=== PATIENT | male | born 1985 | race African-American/Black ===

== ENCOUNTER 2018-07-29 19:00 | Emergency (ER) | payer BC, SELFPAY ==
[2018-07-29 19:31] LABS: #Basophils 0.1 thou/uL (0.0-0.2); #Monocytes 0.6 thou/uL (0.11-0.59); #Neutrophils 2.8 thou/uL (1.40-6.50); %Basophils 1.3 % (0.0-1.0); %Eosinophils 0.4 % (0.0-10.0); %Lymphocytes 23.1 % (21.0-51.0); %Monocytes 12.6 % (0.0-10.0); %Neutrophils 62.6 % (42.0-75.0); Hemoglobin 12.6 g/dL (14.0-18.0); Mean Corpuscular HGB CONC 32.9 g/dL (32.0-36.0); Mean Corpuscular Hemoglobin 27.8 pg (27.0-31.0); Mean Corpuscular Volume 84.4 fL (78.0-98.0); Mean Platelet Volume 8.7 fL (7.4-10.4); Platelet Count 165 thou/uL (130-400); RBC Distribution Width 11.5 % (11.5-14.5); Red Blood Cell (RBC) Count 4.53 mill/uL (4.70-6.10); White Blood Cell (WBC) Count 4.4 thou/uL (4.8-10.8)
[2018-07-29 20:05] LABS: ALT (SGPT) 24 U/L (8-55); AST (SGOT) 19 U/L (5-34); Albumin 4.2 g/dL (3.5-5.0); Alkaline Phosphatase 52 U/L (40-150); Anion Gap 11 mmol/L (10-20); BUN (Urea Nitrogen) 11 mg/dL (8.9-20.6); Bilirubin, Total 0.4 mg/dL (0.2-1.2); Calc. Creatinine Clearance 0 mL/min (70-130); Calcium 9.5 mg/dL (7.8-10.44); Carbon Dioxide 28 mmol/L (22-29); Chloride 103 mmol/L (98-107); Estimated GFR-MDRD 59; Glucose 114 mg/dL (70-105); Protein, Total 7.2 g/dL (6.0-8.3); Sodium 138 mmol/L (136-145)
[2018-07-29] MEDS ORDERED: Metoclopramide HCl 10 MG/2 ML VIAL ONE (20:17)
[2018-07-29] MEDS ORDERED: diphenhydrAMINE 50 MG/ML VIAL ONE (20:17)
[2018-07-29] MEDS ORDERED: Acetaminophen 500 MG TAB ONE (20:17)
--- NOTE | 2018-07-29 20:23 | CT ---
CT HEAD WITHOUT CONTRAST: 07/29/18 Multiple axial tomograms obtained through the head without IV enhancement. INDICATIONS: Headache. Ventricles have normal size and position. No evidence of intracranial mass or hemorrhage. No evidence of edema or infarct. Sinuses are well aerated. IMPRESSION: No acute findings. POS: [facility]
== END 2018-07-29 22:47 | disposition home or self-care (01) ==
LOC: ERS 19:00
DX: R51 Headache (principal)
CPT/HCPCS: 36415; 70450; 80053; 85025; 96365; 96366; 96375; J1200; J2765

== ENCOUNTER 2021-04-15 10:35 | Inpatient (IN) | payer OTHER ==
[2021-04-15 11:26] LABS: #Basophils 0.1 thou/uL (0.0-0.2); #Lymphocytes 1.4 thou/uL (1.20-3.40); #Monocytes 1.1 thou/uL (0.11-0.59); #Neutrophils 7.8 thou/uL (1.40-6.50); %Basophils 0.5 % (0.0-1.0); %Eosinophils 0.3 % (0.0-10.0); %Lymphocytes 13.8 % (21.0-51.0); %Monocytes 10.1 % (0.0-10.0); %Neutrophils 75.3 % (42.0-75.0); Hemoglobin 13.3 g/dL (14.0-18.0); Mean Corpuscular HGB CONC 31.5 g/dL (32.0-36.0); Mean Corpuscular Hemoglobin 27.4 pg (27.0-31.0); Mean Corpuscular Volume 86.7 fL (78.0-98.0); Mean Platelet Volume 8.9 fL (7.4-10.4); Platelet Count 166 thou/uL (130-400); RBC Distribution Width 11.8 % (11.5-14.5); Red Blood Cell (RBC) Count 4.88 mill/uL (4.70-6.10); White Blood Cell (WBC) Count 10.4 thou/uL (4.8-10.8)
[2021-04-15 11:48] LABS: ALT (SGPT) 17 U/L (8-55); AST (SGOT) 18 U/L (5-34); Albumin 4.5 g/dL (3.5-5.0); Alkaline Phosphatase 56 U/L (40-110); Anion Gap 15 mmol/L (10-20); BUN (Urea Nitrogen) 11 mg/dL (8.9-20.6); Bilirubin, Total 0.7 mg/dL (0.2-1.2); Calc. Creatinine Clearance 0 mL/min (70-130); Calcium 9.9 mg/dL (7.8-10.44); Carbon Dioxide 25 mmol/L (22-29); Chloride 105 mmol/L (98-107); Globulin 3.3 g/dL (2.4-3.5); Glucose 92 mg/dL (70-105); Potassium 3.7 mmol/L (3.5-5.1); Protein, Total 7.8 g/dL (6.0-8.3); Sodium 141 mmol/L (136-145)
[2021-04-15] MEDS ORDERED: Ketorolac Tromethamine 30 MG/ML VIAL ONE (13:18)
[2021-04-15] MEDS ORDERED: cefTRIAXone\\ROCEPHIN 2 GM VIAL ONE (13:18)
[2021-04-15] MEDS ORDERED: Ondansetron PF 4 MG/2 ML Vial IVP PRN (17:13)
[2021-04-15] MEDS ORDERED: Ondansetron ODT 4 MG TAB PO PRN (17:13)
[2021-04-15] MEDS ORDERED: Acetaminophen 650 MG Suppository PR PRN (17:13)
[2021-04-15] MEDS: Vancomycin 1.5 GRAM/300 ML BAG 1.5 GM in Premix Bag 1 BAG IVPB SCH ×3 (19:57→23:08)
[2021-04-15] MEDS: Acetaminophen 325 MG TAB PO PRN (21:21)
[2021-04-15] MEDS: Ketorolac Tromethamine 10 MG TAB PO PRN (21:43)
[2021-04-15] MEDS: Cefepime 2 GM in Sodium Chloride 0.9% 100 ML IVPB SCH (21:47)
[2021-04-15] MEDS: Clindamycin/D5W 600 MG in Premix Bag 1 BAG IVPB SCH (22:14)
[2021-04-15 23:53] VITALS: BMI 25.1
[2021-04-16] MEDS: Clindamycin/D5W 600 MG in Premix Bag 1 BAG IVPB SCH ×2 (05:59→16:44)
[2021-04-16 06:22] LABS: #Eosinphils 0.1 thou/uL (0.0-0.7); #Lymphocytes 1.4 thou/uL (1.20-3.40); #Monocytes 0.7 thou/uL (0.11-0.59); #Neutrophils 4.7 thou/uL (1.40-6.50); %Basophils 0.1 % (0.0-1.0); %Eosinophils 1.4 % (0.0-10.0); %Lymphocytes 19.9 % (21.0-51.0); %Monocytes 10.1 % (0.0-10.0); %Neutrophils 68.6 % (42.0-75.0); Hemoglobin 12.1 g/dL (14.0-18.0); Mean Corpuscular HGB CONC 31.8 g/dL (32.0-36.0); Mean Corpuscular Hemoglobin 27.8 pg (27.0-31.0); Mean Corpuscular Volume 87.5 fL (78.0-98.0); Mean Platelet Volume 8.7 fL (7.4-10.4); Platelet Count 157 thou/uL (130-400); RBC Distribution Width 11.7 % (11.5-14.5); Red Blood Cell (RBC) Count 4.36 mill/uL (4.70-6.10); White Blood Cell (WBC) Count 6.9 thou/uL (4.8-10.8)
[2021-04-16] MEDS: Ketorolac Tromethamine 10 MG TAB PO PRN (06:24)
[2021-04-16 06:41] LABS: Anion Gap 14 mmol/L (10-20); BUN (Urea Nitrogen) 12 mg/dL (8.9-20.6); Calc. Creatinine Clearance 118 mL/min (70-130); Calcium 8.9 mg/dL (7.8-10.44); Carbon Dioxide 25 mmol/L (22-29); Chloride 104 mmol/L (98-107); Glucose 97 mg/dL (70-105); Potassium 3.9 mmol/L (3.5-5.1); Sodium 139 mmol/L (136-145)
[2021-04-16] MEDS: Cefepime 2 GM in Sodium Chloride 0.9% 100 ML IVPB SCH (08:23)
[2021-04-16] MEDS: Vancomycin 1.5 GRAM/300 ML BAG 1.5 GM in Premix Bag 1 BAG IVPB SCH ×2 (09:09→16:54)
[2021-04-16] MEDS: Floranex 1 GM Packet PO SCH (10:54)
[2021-04-16] MEDS: Ketorolac Tromethamine 30 MG/ML VIAL IVP SCH (17:33)
[2021-04-16 23:18] LABS: Vancomycin, Trough 24.2 ug/mL
[2021-04-17] MEDS: Ketorolac Tromethamine 30 MG/ML VIAL IVP SCH ×3 (02:06→17:39)
[2021-04-17] MEDS: VANCOMYCIN 1.25 GM/250 ML BAG 1.25 GM in Premix Bag 1 BAG IVPB SCH ×3 (02:07→17:45)
[2021-04-17 03:30] LABS: SARS-CoV-2 NAA Rapid Test Not Detected (NotDetected)
[2021-04-17 06:03] LABS: #Eosinphils 0.2 thou/uL (0.0-0.7); #Lymphocytes 1.5 thou/uL (1.20-3.40); #Monocytes 0.5 thou/uL (0.11-0.59); #Neutrophils 3.6 thou/uL (1.40-6.50); %Basophils 0.1 % (0.0-1.0); %Eosinophils 2.8 % (0.0-10.0); %Lymphocytes 25.3 % (21.0-51.0); %Monocytes 9.1 % (0.0-10.0); %Neutrophils 62.6 % (42.0-75.0); Hemoglobin 10.8 g/dL (14.0-18.0); Mean Corpuscular HGB CONC 31.6 g/dL (32.0-36.0); Mean Corpuscular Hemoglobin 27.6 pg (27.0-31.0); Mean Corpuscular Volume 87.3 fL (78.0-98.0); Mean Platelet Volume 8.4 fL (7.4-10.4); Platelet Count 161 thou/uL (130-400); RBC Distribution Width 11.6 % (11.5-14.5); Red Blood Cell (RBC) Count 3.91 mill/uL (4.70-6.10); White Blood Cell (WBC) Count 5.7 thou/uL (4.8-10.8)
[2021-04-17 06:20] LABS: Anion Gap 12 mmol/L (10-20); BUN (Urea Nitrogen) 11 mg/dL (8.9-20.6); Calc. Creatinine Clearance 135 mL/min (70-130); Calcium 8.7 mg/dL (7.8-10.44); Carbon Dioxide 27 mmol/L (22-29); Chloride 105 mmol/L (98-107); Glucose 94 mg/dL (70-105); Potassium 3.7 mmol/L (3.5-5.1); Sodium 140 mmol/L (136-145)
[2021-04-17] MEDS: Floranex 1 GM Packet PO SCH (09:39)
[2021-04-17] MEDS ORDERED: Neomycin-Polymyxin 1 ML AMP ONE (13:56)
[2021-04-17] MEDS ORDERED: Thrombin 5000 UNITS/5 ML VIAL ONE (13:56)
[2021-04-17] MEDS ORDERED: Bacitracin Zinc Ointment 30 gm TUBE ONE (13:56)
[2021-04-17] MEDS ORDERED: Bupivacaine PF 0.5% 30 ML VIAL ONE (13:56)
[2021-04-17] MEDS ORDERED: Fentanyl 100 MCG/2 ML VIAL ONE ×2 (13:58→15:58)
[2021-04-17] MEDS ORDERED: Dexamethasone 20 MG/5 ML VIAL ONE (14:34)
[2021-04-17] MEDS ORDERED: PROPOFOL 200 MG/20 ML VIAL ONE (14:34)
[2021-04-17] MEDS ORDERED: PHENYLEPHRINE-NS 100 MCG/ML 10 ML SYRINGE ONE (14:34)
[2021-04-17] MEDS ORDERED: ePHEDrine 50 MG/ML VIAL ONE (14:34)
[2021-04-17] MEDS ORDERED: Lidocaine 1% PF 5 ML VIAL ONE (14:34)
[2021-04-17] MEDS ORDERED: Ondansetron PF 4 MG/2 ML Vial ONE (14:34)
[2021-04-17] MEDS ORDERED: Promethazine HCl 25 MG/ML VIAL IM PRN (16:18)
[2021-04-17] MEDS: Penicillin G Potassium 3 MILL.UNITS in Sodium Chloride 0.9% 100 ML IVPB SCH ×3 (17:45→23:57)
[2021-04-17 23:13] LABS: Vancomycin, Trough 23.8 ug/mL
[2021-04-17] MEDS: Acetaminophen 325 MG TAB PO PRN (23:58)
[2021-04-18] MEDS: Ketorolac Tromethamine 30 MG/ML VIAL IVP SCH ×3 (01:36→16:03)
[2021-04-18] MEDS: VANCOMYCIN 1.25 GM/250 ML BAG 1.25 GM in Premix Bag 1 BAG IVPB SCH ×3 (01:37→17:57)
[2021-04-18] MEDS: Penicillin G Potassium 3 MILL.UNITS in Sodium Chloride 0.9% 100 ML IVPB SCH ×3 (02:56→15:24)
[2021-04-18 05:29] LABS: #Monocytes 0.7 thou/uL (0.11-0.59); #Neutrophils 4.8 thou/uL (1.40-6.50); %Basophils 0.2 % (0.0-1.0); %Eosinophils 0.2 % (0.0-10.0); %Monocytes 10.8 % (0.0-10.0); %Neutrophils 73.9 % (42.0-75.0); Mean Corpuscular HGB CONC 32.3 g/dL (32.0-36.0); Mean Corpuscular Hemoglobin 28.4 pg (27.0-31.0); Mean Corpuscular Volume 87.7 fL (78.0-98.0); Mean Platelet Volume 8.4 fL (7.4-10.4); Platelet Count 162 thou/uL (130-400); RBC Distribution Width 11.7 % (11.5-14.5); Red Blood Cell (RBC) Count 3.89 mill/uL (4.70-6.10); White Blood Cell (WBC) Count 6.4 thou/uL (4.8-10.8)
[2021-04-18 05:48] LABS: Anion Gap 12 mmol/L (10-20); BUN (Urea Nitrogen) 14 mg/dL (8.9-20.6); Calc. Creatinine Clearance 140 mL/min (70-130); Calcium 8.6 mg/dL (7.8-10.44); Carbon Dioxide 24 mmol/L (22-29); Chloride 106 mmol/L (98-107); Glucose 136 mg/dL (70-105); Potassium 4.1 mmol/L (3.5-5.1); Sodium 138 mmol/L (136-145)
[2021-04-18] MEDS: Floranex 1 GM Packet PO SCH (09:48)
[2021-04-18] MEDS: Morphine 4 MG/ML VIAL SLOW IVP PRN ×3 (13:24→23:52)
[2021-04-18] MEDS ORDERED: Meperidine HCl/PF 25 MG/ML VIAL IM PRN (14:00)
[2021-04-18] MEDS: Acetaminophen 325 MG TAB PO PRN (14:19)
[2021-04-19] MEDS: VANCOMYCIN 1.25 GM/250 ML BAG 1.25 GM in Premix Bag 1 BAG IVPB SCH ×2 (01:04→10:57)
[2021-04-19] MEDS: Ketorolac Tromethamine 30 MG/ML VIAL IVP SCH ×3 (01:04→17:20)
[2021-04-19 04:22] LABS: #Eosinphils 0.1 thou/uL (0.0-0.7); #Lymphocytes 1.9 thou/uL (1.20-3.40); #Monocytes 0.5 thou/uL (0.11-0.59); #Neutrophils 2.3 thou/uL (1.40-6.50); %Basophils 0.1 % (0.0-1.0); %Eosinophils 2.6 % (0.0-10.0); %Monocytes 9.4 % (0.0-10.0); %Neutrophils 48.9 % (42.0-75.0); Hemoglobin 10.5 g/dL (14.0-18.0); Mean Corpuscular HGB CONC 32.4 g/dL (32.0-36.0); Mean Corpuscular Hemoglobin 28.2 pg (27.0-31.0); Mean Platelet Volume 7.8 fL (7.4-10.4); Platelet Count 181 thou/uL (130-400); RBC Distribution Width 11.5 % (11.5-14.5); Red Blood Cell (RBC) Count 3.71 mill/uL (4.70-6.10); White Blood Cell (WBC) Count 4.8 thou/uL (4.8-10.8)
[2021-04-19 04:41] LABS: Anion Gap 8 mmol/L (10-20); BUN (Urea Nitrogen) 12 mg/dL (8.9-20.6); Calc. Creatinine Clearance 131 mL/min (70-130); Calcium 8.5 mg/dL (7.8-10.44); Carbon Dioxide 28 mmol/L (22-29); Chloride 109 mmol/L (98-107); Glucose 101 mg/dL (70-105); Potassium 3.8 mmol/L (3.5-5.1); Sodium 141 mmol/L (136-145)
[2021-04-19] MEDS: Morphine 4 MG/ML VIAL SLOW IVP PRN ×3 (09:14→22:07)
[2021-04-19] MEDS: Floranex 1 GM Packet PO SCH (09:16)
[2021-04-19 09:38] LABS: Vancomycin, Trough 20.2 ug/mL
[2021-04-19] MEDS ORDERED: Polyethylene Glycol 3350 17 GM Packet PO PRN (10:00)
[2021-04-19] MEDS: Vancomycin 1 GM in Premix Bag 1 BAG IVPB SCH ×2 (11:15→17:21)
[2021-04-19] MEDS: Acetaminophen 325 MG TAB PO PRN ×2 (11:26→22:04)
[2021-04-19] MEDS ORDERED: Ketorolac Tromethamine 30 MG/ML VIAL IVP SCH (17:00)
[2021-04-19] MEDS: pyridOXINE 50 MG (B6) TAB PO SCH (19:45)
[2021-04-20] MEDS: Vancomycin 1 GM in Premix Bag 1 BAG IVPB SCH ×2 (00:54→10:16)
[2021-04-20] MEDS: Ketorolac Tromethamine 30 MG/ML VIAL IVP SCH ×3 (00:55→14:43)
[2021-04-20 06:06] LABS: #Eosinphils 0.1 thou/uL (0.0-0.7); #Lymphocytes 1.7 thou/uL (1.20-3.40); #Monocytes 0.4 thou/uL (0.11-0.59); #Neutrophils 1.9 thou/uL (1.40-6.50); %Basophils 0.4 % (0.0-1.0); %Eosinophils 3.1 % (0.0-10.0); %Monocytes 10.3 % (0.0-10.0); %Neutrophils 45.2 % (42.0-75.0); Hemoglobin 10.8 g/dL (14.0-18.0); Mean Corpuscular HGB CONC 32.3 g/dL (32.0-36.0); Mean Corpuscular Volume 86.6 fL (78.0-98.0); Mean Platelet Volume 7.9 fL (7.4-10.4); Platelet Count 196 thou/uL (130-400); RBC Distribution Width 11.6 % (11.5-14.5); Red Blood Cell (RBC) Count 3.84 mill/uL (4.70-6.10); White Blood Cell (WBC) Count 4.2 thou/uL (4.8-10.8)
[2021-04-20 06:24] LABS: Anion Gap 11 mmol/L (10-20); BUN (Urea Nitrogen) 13 mg/dL (8.9-20.6); Calc. Creatinine Clearance 148 mL/min (70-130); Calcium 8.5 mg/dL (7.8-10.44); Carbon Dioxide 26 mmol/L (22-29); Chloride 106 mmol/L (98-107); Glucose 89 mg/dL (70-105); Potassium 3.8 mmol/L (3.5-5.1); Sodium 139 mmol/L (136-145)
[2021-04-20 07:43] VITALS: BP 128/72; TEMP 97.5
[2021-04-20] MEDS: pyridOXINE 50 MG (B6) TAB PO SCH (08:27)
[2021-04-20] MEDS: Floranex 1 GM Packet PO SCH (08:30)
[2021-04-20] MEDS: Morphine 4 MG/ML VIAL SLOW IVP PRN (14:44)
[2021-04-20 16:40] LABS: SARS-CoV-2 NAA Rapid Test Not Detected (NotDetected)
== END 2021-04-20 16:39 | disposition home or self-care (01) | DRG 982 ==
LOC: ERS 10:35 → MSONC 17:15
PROVIDERS: ADMIT Internal Medicine; ATTEND Internal Medicine
PROC: 01Q60ZZ Repair Radial Nerve, Open Approach (ICD-10-PCS; principal; 2021-04-17)
PROC: 0L970ZZ Drainage of Right Hand Tendon, Open Approach (ICD-10-PCS; 2021-04-17)
PROC: 0J9J0ZZ Drainage of Right Hand Subcutaneous Tissue and Fascia, Open Approach (ICD-10-PCS; 2021-04-17)
DX: L03.011 Cellulitis of right finger (principal); L02.511 Cutaneous abscess of right hand; L03.113 Cellulitis of right upper limb; Z20.822 Contact with and (suspected) exposure to COVID-19; K59.00 Constipation, unspecified; B95.62 Methicillin resistant Staphylococcus aureus infection as the cause of diseases classified elsewhere; Z90.09 Acquired absence of other part of head and neck
CPT/HCPCS: 36415; 80048; 80053; 80202; 85025; 87040; 87070; 87077; 87186; 87205; 94760; 96365; 96375; J0692; J0696; J1100; J1885; J2270; J2405; J2540; J2704; J3010; J3370; J3490; S0020; U0002

== ENCOUNTER 2021-04-22 13:35 | Day surgery (SDC) | payer OTHER ==
[2021-04-21 10:50] VITALS: BMI 25.4
[2021-04-22] MEDS ORDERED: Neomycin-Polymyxin 1 ML AMP ONE (13:51)
[2021-04-22] MEDS ORDERED: Bupivacaine PF 0.5% 30 ML VIAL ONE (13:51)
[2021-04-22] MEDS ORDERED: Bacitracin Zinc Ointment 30 gm TUBE ONE (13:51)
[2021-04-22] MEDS ORDERED: Thrombin 5000 UNITS/5 ML VIAL ONE (13:51)
[2021-04-22] MEDS ORDERED: Fentanyl 100 MCG/2 ML VIAL ONE ×2 (14:08→16:18)
[2021-04-22] MEDS ORDERED: ceFAZolin 2 GM/Dextrose 50 ML IVPB ONE (14:10)
[2021-04-22] MEDS ORDERED: Glycopyrrolate 0.2 MG/ML 5 ML SYRINGE ONE (14:26)
[2021-04-22] MEDS ORDERED: Ondansetron PF 4 MG/2 ML Vial ONE (14:26)
[2021-04-22] MEDS ORDERED: PHENYLEPHRINE-NS 100 MCG/ML 10 ML SYRINGE ONE (14:26)
[2021-04-22] MEDS ORDERED: Dexamethasone 20 MG/5 ML VIAL ONE (14:26)
[2021-04-22] MEDS ORDERED: Lidocaine 1% PF 5 ML VIAL ONE (14:26)
[2021-04-22] MEDS ORDERED: PROPOFOL 200 MG/20 ML VIAL ONE (14:26)
[2021-04-22] MEDS ORDERED: PROPOFOL 20 ML ONE (14:42)
[2021-04-22] MEDS ORDERED: Ketorolac Tromethamine 30 MG/ML VIAL ONE (15:55)
[2021-04-22] MEDS ORDERED: HYDROcodone/Acetaminophen 5/325 mg Tablet ONE (17:04)
== END 2021-04-22 17:30 | disposition home or self-care (01) ==
LOC: SDC 13:35
PROVIDERS: ATTEND Orthopaedic Surgery Hand Surgery
PROC: 0JBJ0ZZ Excision of Right Hand Subcutaneous Tissue and Fascia, Open Approach (ICD-10-PCS; principal; 2021-04-22)
DX: S61.001A Unspecified open wound of right thumb without damage to nail, initial encounter (principal); S64.31XA Injury of digital nerve of right thumb, initial encounter; Z79.2 Long term (current) use of antibiotics; X58.XXXA Exposure to other specified factors, initial encounter
CPT/HCPCS: J0690; J1100; J1885; J2405; J2704; J3010; S0020